=== PATIENT | female | born 1995 | race African-American/Black ===

== ENCOUNTER 2016-05-17 14:27 | Emergency (ER) | payer SELFPAY ==
[~2016-05-17] VITALS: Ht 167.6 cm; Wt 70.3 kg
[~2016-05-17 14:27] MED LIST: HYDR-2666 PO
[2016-05-17 14:32] VITALS: BP 127/94
[2016-05-17] MEDS ORDERED: ONDANSETRON ODT 4 MG TAB.RAPDIS. PO ONE (15:00)
--- NOTE | 2016-05-17 15:48 | PHYS DOC ---
Past Medical History Past Medical History: No Pertinent History Past Surgical History: No Surgical History Smoking: Less than 1pk/day Alcohol Use: Occasionally Drug Use: None Adult General Chief Complaint Chief Complaint: GENERAL COMPLAINT HPI HPI Patient is a 21 year old female who presents with nausea, vomiting, and diffuse abdominal pain starting today. She states that last night she drank 5-6 Strawberrita 8 oz malt liquor beverages. She woke this morning with nausea and vomiting. She has not been able to eat. She denies any diarrhea, fever, or urinary symptoms. She does not have a PCP. Review of Systems Review of Systems Constitutional: Denies fever or chills. [] Eyes: Denies change in visual acuity, redness, or eye pain. [] HENT: Denies ear pain, nasal congestion or sore throat. [] Respiratory: Denies cough or shortness of breath. [] Cardiovascular: Denies chest pain, palpitations or edema. [] GI: Denies bloody stools or diarrhea. Reports nausea, vomiting, and diffuse abdominal pain. : Denies dysuria, hematuria or urinary frequency. [] Musculoskeletal: Denies back pain or joint pain. [] Integument: Denies rash or skin lesions. [] Neurologic: Denies headache, focal weakness or sensory changes. [] Endocrine: Denies polyuria or polydipsia. [] Psych: Denies anxiety or depression. [] All systems reviewed and negative unless otherwise stated in the HPI. Current Medications Current Medications Current Medications Medications (Trade) Dose Ordered Sig/Ash Start Time Stop Time Status Last Admin Dose Admin Ondansetron HCl (Zofran Odt) 4 mg 1X ONCE 05/17/16 15:00 05/17/16 15:01 DC 05/17/16 15:03 4 MG Allergies Allergies Allergies Coded Allergies Type Severity Reaction Last Updated Verified No Known Drug Allergies 07/12/14 No Physical Exam Physical Exam Constitutional: Well developed, well nourished, no acute distress, non-toxic appearance. [] HENT: Normocephalic, atraumatic, oropharynx moist. [] Eyes: PERRLA, EOMI, conjunctiva normal, no discharge. [] Neck: Normal range of motion, no tenderness, supple, no stridor. [] Cardiovascular: Heart rate regular rhythm, no murmur. [] Lungs & Thorax: Bilateral breath sounds clear to auscultation without wheezes, rales, or rhonchi. [] Abdomen: Bowel sounds normal, soft, epigastric tenderness, no masses, no pulsatile masses. [] Skin: Warm, dry, no erythema, no rash. [] Back: No midline tenderness, no CVA tenderness. [] Neurologic: Alert and oriented X 3, normal motor function, normal sensory function, no focal deficits noted. [] Psychologic: Affect normal, judgement normal, mood normal. [] Current Patient Data Vital Signs Vital Signs Date Time Temp Pulse Resp B/P Pulse Ox O2 Delivery O2 Flow Rate FiO2 05/17/16 14:32 98.5 80 20 98 Room Air 98.5 EKG EKG [] Radiology/Procedures Radiology/Procedures [] Course & Med Decision Making Course & Med Decision Making Pertinent Labs and Imaging studies reviewed. (See chart for details) Patient presents with nausea, vomiting, and abdominal pain after excessive alcohol intake last night. Upon arrival to the emergency department, her vital signs are stable. On exam, her abdomen is soft and nonsurgical with epigastric tenderness. She was given ODT Zofran for her nausea and instructed to sip water. She reports feeling much better without any emesis in the emergency department. She is discharged with prescription for Zofran. Return precautions were discussed. She verbalizes understanding and agrees with plan. Dragon Disclaimer Dragon Disclaimer This electronic medical record was generated, in whole or in part, using a voice recognition dictation system. Departure Departure Impression: Primary Impression: Nausea & vomiting Disposition: 01 HOME, SELF-CARE Condition: IMPROVED Referrals: NO PCP (PCP) Patient Instructions: Nausea and Vomiting, [id number] Additional Instructions: Please take the prescribed nausea medication as needed for nausea or vomiting. Please drink alcohol responsibly, not in excess. Return to the emergency department if you have any new or concerning symptoms. Scripts Ondansetron (Zofran Odt)4 Mg Tab.rapdis1 Tab SL Q8HRS #10 TAB Prov:VICKEY ROSARIO 05/17/16 Problem Qualifiers Primary Impression: Nausea & vomiting Vomiting type: unspecified Vomiting Intractability: non-intractable Qualified Code: R11.2 - Nausea with vomiting, unspecified VICKEY ROSARIO May 17, 2016 15:48
[2016-05-17] MEDS ORDERED: ONDA4TAB10 SL (15:51)
== END 2016-05-17 15:56 | disposition home or self-care (01) ==
LOC: ER 14:27
DX: R11.2 Nausea with vomiting, unspecified (principal); R10.84 Generalized abdominal pain; R10.816 Epigastric abdominal tenderness; F17.200 Nicotine dependence, unspecified, uncomplicated
CPT/HCPCS: 99283; Q0162

== ENCOUNTER 2017-08-26 13:21 | Emergency (ER) | payer OTHER | END 2017-08-26 14:10 | disposition left against medical advice (07) | LOC: ER 14:10 | DX: R10.9 Unspecified abdominal pain (principal); R11.2 Nausea with vomiting, unspecified; Z53.21 Procedure and treatment not carried out due to patient leaving prior to being seen by health care provider ==

== ENCOUNTER 2019-04-07 05:51 | Emergency (ER) | payer OTHER ==
[~2019-04-07] VITALS: Ht 167.6 cm; Wt 68.1 kg
[~2019-04-07 05:51] MED LIST changes: -HYDR-2666 PO; +HYDR-2761 PO; +ONDA4TAB10 SL
[2019-04-07 05:52] VITALS: BP 129/83
--- NOTE | 2019-04-07 06:08 | PHYS DOC ---
Past Medical History Past Medical History: No Pertinent History Past Surgical History: No Surgical History Smoking Status: Current Every Day Smoker Alcohol Use: Occasionally Drug Use: None Adult General Chief Complaint Chief Complaint: CHEST PAIN HPI HPI Patient is a 24 year old -[place] female who presents to the ER secondary to complaint of chest pain. Patient states her symptoms started yesterday with epigastric discomfort and she had associated nausea and vomiting. Her pain moved into her chest throughout the night and is currently described as a pressure rated 6/10. Her pain was 8/10 yesterday. Exasperating factors include lying down flat. She has not tried medication for this. There have been sick contacts around her with similar gastrointestinal symptoms as well as pneumonia. Patient denies fever but does admit to a cough. She has a history of smoking Review of Systems Review of Systems All other ROS is negative unless otherwise stated in HPI Current Medications Current Medications Current Medications Medications (Trade) Dose Ordered Sig/Ash Start Time Stop Time Status Last Admin Dose Admin Aspirin (Children'S Aspirin) 324 mg 1X ONCE 04/07/19 06:15 04/07/19 06:16 DC 04/07/19 06:07 324 MG Multi-Ingredient Mouthwash/Gargle (Gi Cocktail) 20 ml 1X ONCE 04/07/19 06:30 04/07/19 06:31 DC 04/07/19 06:14 20 ML Ondansetron HCl (Zofran) 4 mg 1X ONCE 04/07/19 06:30 04/07/19 06:31 DC 04/07/19 06:15 4 MG Allergies Allergies Allergies Coded Allergies Type Severity Reaction Last Updated Verified No Known Drug Allergies 07/12/14 No Physical Exam Physical Exam See above Constitutional: Well developed, well nourished, no acute distress, non-toxic appearance. [] HENT: Normocephalic, atraumatic, bilateral external ears normal, oropharynx moist, no oral exudates, nose normal. [] Eyes: PERRLA, EOMI, conjunctiva normal, no discharge. [] Neck: Normal range of motion, no tenderness, supple, no stridor. [] Cardiovascular:Heart rate regular rhythm, no murmur [] Lungs & Thorax: Bilateral breath sounds clear to auscultation [] Abdomen: Bowel sounds normal, soft, no tenderness, no masses, no pulsatile masses. [] Skin: Warm, dry, no erythema, no rash. [] Back: No tenderness, no CVA tenderness. [] Extremities: No tenderness, no cyanosis, no clubbing, ROM intact, no edema. [] Neurologic: Alert and oriented X 3, normal motor function, normal sensory function, no focal deficits noted. [] Psychologic: Affect normal, judgement normal, mood normal. [] Current Patient Data Vital Signs Vital Signs Date Time Temp Pulse Resp B/P (MAP) Pulse Ox O2 Delivery O2 Flow Rate FiO2 04/07/19 05:52 97.3 81 24 129/83 (98) 98 Room Air 97.3 Lab Values Laboratory Tests Test 04/07/19 06:00 04/07/19 06:05 04/07/19 06:20 White Blood Count 6.4 x10^3/uL (4.0-11.0) Red Blood Count 4.36 x10^6/uL (3.50-5.40) Hemoglobin 12.6 g/dL (12.0-15.5) Hematocrit 37.9 % (36.0-47.0) Mean Corpuscular Volume 87 fL (79-100) Mean Corpuscular Hemoglobin 29 pg (25-35) Mean Corpuscular Hemoglobin Concent 33 g/dL (31-37) Red Cell Distribution Width 14.0 % (11.5-14.5) Platelet Count 181 x10^3/uL (140-400) Neutrophils (%) (Auto) 39 % (31-73) Lymphocytes (%) (Auto) 47 % (24-48) Monocytes (%) (Auto) 7 % (0-9) Eosinophils (%) (Auto) 6 % (0-3) H Basophils (%) (Auto) 1 % (0-3) Neutrophils # (Auto) 2.5 x10^3/uL (1.8-7.7) Lymphocytes # (Auto) 3.0 x10^3/uL (1.0-4.8) Monocytes # (Auto) 0.5 x10^3/uL (0.0-1.1) Eosinophils # (Auto) 0.4 x10^3/uL (0.0-0.7) Basophils # (Auto) 0.0 x10^3/uL (0.0-0.2) Sodium Level 140 mmol/L (136-145) Potassium Level 3.9 mmol/L (3.5-5.1) Chloride Level 105 mmol/L (98-107) Carbon Dioxide Level 27 mmol/L (21-32) Anion Gap 8 (6-14) Blood Urea Nitrogen 13 mg/dL (7-20) Creatinine 0.9 mg/dL (0.6-1.0) Estimated GFR (Cockcroft-Gault) 92.3 BUN/Creatinine Ratio 14 (6-20) Glucose Level 90 mg/dL (70-99) Calcium Level 9.0 mg/dL (8.5-10.1) Total Bilirubin 0.7 mg/dL (0.2-1.0) Aspartate Amino Transferase (AST) 15 U/L (15-37) Alanine Aminotransferase (ALT) 17 U/L (14-59) Alkaline Phosphatase 61 U/L (46-116) Troponin I Quantitative < 0.017 ng/mL (0.000-0.055) Total Protein 7.3 g/dL (6.4-8.2) Albumin 3.6 g/dL (3.4-5.0) Albumin/Globulin Ratio 1.0 (1.0-1.7) Influenza Type A Antigen Negative (NEGATIVE) Influenza Type B Antigen Negative (NEGATIVE) POC Urine HCG, Qualitative Hcg negative (Negative) Laboratory Tests 04/07/19 06:00 Laboratory Tests 04/07/19 06:00 EKG EKG EKG shows a sinus rhythm with a ventricular rate of [address] changes. Intervals are normal. Radiology/Procedures Radiology/Procedures Single view chest dated 04/07/2019: No comparison available. Clinical Indication: Chest pain. Findings: Single upright portable exam of the chest was performed. Heart size and mediastinal contours are within normal limits given technique. The lungs are clear without evidence of focal consolidation. Vascular interstitium is within normal limits. Impression:: Negative portable chest.[] Course & Med Decision Making Course & Med Decision Making Pertinent Labs and Imaging studies reviewed. (See chart for details) 0607: 24-year-old female seen for chest pain. Her EKG is unremarkable. Differential diagnosis includes cardiac etiology, gastroenteritis, influenza, pneumonia. We will give aspirin and will also give Zofran and GI cocktail as this may be related to esophageal irritation from recent vomiting. 0657: Patient is feeling better after GI cocktail. Her labs and x-ray are unremarkable. Patient will be given a prescription for Zofran as well as Pepcid and she is to follow-up for ongoing symptoms. Manishaon Disclaimer Yonny Disclaimer This electronic medical record was generated, in whole or in part, using a voice recognition dictation system. Departure Departure Impression: Primary Impression: Atypical chest pain Additional Impressions: Irritable esophagus Vomiting Disposition: HOME, SELF-CARE Condition: IMPROVED Referrals: NO PCP (PCP) Patient Instructions: Chest Pain (Nonspecific) Scripts Famotidine (PEPCID) 20 Mg Tablet 20 MG PO BID for 7 Days, #14 TAB Prov: JOLEEN JACKSON DO 04/07/19 Ondansetron Hcl (ZOFRAN) 4 Mg Tablet 1 TAB PO PRN Q6-8HRS for nausea, #12 TAB Prov: JOLEEN JACKSON DO 04/07/19 The HEART Score for CP Pts HEART Score for Chest Pain: HEART Score for Chest Pain Response (Comments) Value History Slighlty/Non-Suspicious 0 ECG Normal 0 Age < 45 0 Risk Factors No Risk Factors 0 Troponin < Normal Limit 0 Total 0 Risk Factors: Risk Factors: None Risk Scores: Score 0 - 3: 2.5% MACE over next 6 weeks - Discharge Home Score 4 - 6: 20.3% MACE over next 6 weeks - Admit for Clinical Observation Score 7 - 10: 72.7% MACE over next 6 weeks - Early Invasive Strategies Problem Qualifiers JOLEEN JACKSON DO Apr 07, 2019 06:08
--- NOTE | 2019-04-07 06:12 | EKG ---
[facility] [address] [place] [address] Test Date: 2019-04-07 Test Time: 05:55:25 Pat Name: LISSETT WHITMORE Department: Room: Gender: F [employer] Operator: : [id number] Requested By: JESSICA SANDHU Order Number: [id number] Reading MD: Measurements Intervals [place] Rate: 90 P: 50 SC: 144 QRS: 59 QRSD: 80 T: 36 QT: 348 QTc: 429 Interpretive Statements SINUS RHYTHM LEFT ATRIAL ABNORMALITY ABNORMAL ECG No previous ECG available for comparison
[2019-04-07] MEDS ORDERED: ASPIRIN CHEWABLE 81 MG TABLET. PO ONE (06:15)
[2019-04-07 06:18] LABS: CREATININE 0.9 mg/dL (0.6-1.0); GFR 92.3; POTASSIUM 3.9 mmol/L (3.5-5.1)
[2019-04-07 06:24] LABS: ALBUMIN 3.6 g/dL (3.4-5.0); TOTAL BILIRUBIN 0.7 mg/dL (0.2-1.0); TOTAL PROTEIN 7.3 g/dL (6.4-8.2)
[2019-04-07 06:28] LABS: BASO % 1 % (0-3); EOS # 0.4 x10^3/uL (0.0-0.7); EOS % 6 % (0-3); HEMATOCRIT 37.9 % (36.0-47.0); HEMOGLOBIN 12.6 g/dL (12.0-15.5); LYMPH % 47 % (24-48); MEAN CORPUSCULAR HEMOGLOBIN 29 pg (25-35); MEAN CORPUSCULAR HGB CONC 33 g/dL (31-37); MEAN CORPUSCULAR VOLUME 87 fL (79-100); MONO # 0.5 x10^3/uL (0.0-1.1); MONO % 7 % (0-9); NEUT # 2.5 x10^3/uL (1.8-7.7); NEUT % 39 % (31-73); PLATELET COUNT 181 x10^3/uL (140-400); RED BLOOD COUNT 4.36 x10^6/uL (3.50-5.40); WHITE BLOOD COUNT 6.4 x10^3/uL (4.0-11.0)
[2019-04-07 06:28] LABS: INFLUENZA A PATIENT NEGATIVE (NEGATIVE); INFLUENZA B PATIENT NEGATIVE (NEGATIVE)
[2019-04-07] MEDS ORDERED: LIDO:MAALOX 1:1 20 ML SINGLE DOSE. SWSW ONE (06:30)
[2019-04-07] MEDS ORDERED: ONDANSETRON PF 4 MG/2 ML VIAL. IVP ONE (06:30)
--- NOTE | 2019-04-07 06:39 | RAD ---
Single view chest dated 04/07/2019: No comparison available. Clinical Indication: Chest pain. Findings: Single upright portable exam of the chest was performed. Heart size and mediastinal contours are within normal limits given technique. The lungs are clear without evidence of focal consolidation. Vascular interstitium is within normal limits. Impression:: Negative portable chest. Electronically signed by: Jose Andrade MD (04/07/2019 6:36 AM) [id number]
[2019-04-07] MEDS ORDERED: FAMO-63 PO (07:00)
[2019-04-07] MEDS ORDERED: ONDA4TAB7 PO (07:00)
== END 2019-04-07 07:15 | disposition home or self-care (01) ==
LOC: ER 05:51
DX: R07.89 Other chest pain (principal); R45.4 Irritability and anger; R11.2 Nausea with vomiting, unspecified; F17.200 Nicotine dependence, unspecified, uncomplicated; Z79.82 Long term (current) use of aspirin
CPT/HCPCS: 36415; 71045; 80053; 81025; 84484; 85025; 87804; 93005; 96374; 99285; J2405

== ENCOUNTER 2019-08-30 13:22 | Emergency (ER) | payer OTHER ==
[~2019-08-30] VITALS: Ht 167.6 cm; Wt 70.0 kg
[~2019-08-30 13:22] MED LIST changes: +FAMO-63 PO; +ONDA4TAB7 PO
[2019-08-30 13:44] VITALS: BP 123/72
[2019-08-30 14:14] LABS: BASO # 0.1 x10^3/uL (0.0-0.2); BASO % 1 % (0-3); EOS # 0.3 x10^3/uL (0.0-0.7); EOS % 5 % (0-3); HEMATOCRIT 36.1 % (36.0-47.0); HEMOGLOBIN 12.5 g/dL (12.0-15.5); LYMPH % 29 % (24-48); MEAN CORPUSCULAR HEMOGLOBIN 30 pg (25-35); MEAN CORPUSCULAR HGB CONC 35 g/dL (31-37); MEAN CORPUSCULAR VOLUME 87 fL (79-100); MONO # 0.5 x10^3/uL (0.0-1.1); MONO % 8 % (0-9); NEUT # 3.9 x10^3/uL (1.8-7.7); NEUT % 57 % (31-73); PLATELET COUNT 200 x10^3/uL (140-400); RED BLOOD COUNT 4.13 x10^6/uL (3.50-5.40); RED CELL DISTRIBUTION WIDTH 12.9 % (11.5-14.5); WHITE BLOOD COUNT 6.9 x10^3/uL (4.0-11.0)
[2019-08-30] MEDS ORDERED: IV NORMAL SALINE 1000ML BAG 1,000 ML IV ONE (14:15)
[2019-08-30] MEDS ORDERED: ONDANSETRON PF 4 MG/2 ML VIAL. IV ONE ×2 (14:15→16:15)
[2019-08-30] MEDS ORDERED: MAG HYDROX/ALUMINUM HYD/SIMETH 30 ML ORAL.SUSP PO ONE (14:15)
[2019-08-30] MEDS ORDERED: AZITHROMYCIN 250 MG TABLET. PO ONE (14:15)
[2019-08-30] MEDS ORDERED: cefTRIAXone IM 250 MG VIAL IM ONE (14:15)
[2019-08-30 14:20] LABS: CREATININE 0.8 mg/dL (0.6-1.0); GFR 105.8; POTASSIUM 3.8 mmol/L (3.5-5.1)
[2019-08-30 14:26] LABS: ALBUMIN 3.6 g/dL (3.4-5.0); ALBUMIN/GLOBULIN RATIO 0.9 (1.0-1.7); MAGNESIUM 1.7 mg/dL (1.8-2.4); TOTAL PROTEIN 7.5 g/dL (6.4-8.2)
[2019-08-30 14:35] LABS: BILIRUBIN,URINE NEGATIVE (NEG); CLARITY,URINE CLEAR; COLOR,URINE YELLOW; NITRITE,URINE NEGATIVE (NEG); PH,URINE 7.5 (<5.0-8.0); PROTEIN,URINE NEGATIVE (NEG-TRACE); UROBILINOGEN,URINE 0.2 mg/dL (0.2 mg/dL)
[2019-08-30 14:45] LABS: BACTERIA,URINE FEW /HPF (0-FEW); RBC,URINE 0 /HPF (0-2); SQUAMOUS EPITHELIAL CELL,UR MANY /LPF; WBC,URINE OCC /HPF (0-4)
--- NOTE | 2019-08-30 15:38 | RAD ---
INDICATION: Reason: pelvic pain, lower abd pain, / Spl. Instructions: / History: COMPARISON: None. TECHNIQUE: Grayscale and color ultrasound images uterus and adnexa. Transabdominal and transvaginal images obtained. Transvaginal images were needed to better visualize structures that were limited on transabdominal imaging. FINDINGS: Uterus: 94 x 77 x 61 mm. Intrauterine gestational sac is identified. Adjacent to the gestational sac there is an 8 x 7 mm complex cystic structure identified with some internal echoes within. pole has a heart beat of 117. Duenweg-rump length is 3 mm. There is some free fluid seen within the cul-de-sac. Too early in to assess the placenta. Amniotic fluid is seen. Right Ovary: 26 x 12 x 15 mm. Left Ovary: 40 x 36 x 31 mm. Vascular flow identified to bilateral ovaries. Left ovarian cyst measuring 24 x 28 mm. IMPRESSION: * Intrauterine gestational sac is identified with a pole with estimated gestational age of 5 weeks and 6 days. Recommend routine anomaly screening at 18-22 weeks. * Complex cystic structure is seen adjacent to the gestational sac within the uterus. Could be from causes such as a subchorionic hematoma and attention on follow-up. * Left ovarian cystic lesion. Electronically signed by: Sameer Yeboah MD (08/30/2019 3:35 PM) [id number]
--- NOTE | 2019-08-30 16:01 | PHYS DOC ---
Past Medical History Past Medical History: No Pertinent History Additional Past Medical Histor: Herpes type 1 and type 2. misc. STD's. Past Surgical History: Other Additional Past Surgical Histo: D&C Smoking Status: Former Smoker Alcohol Use: Occasionally Additional Information: "I stopped once I found out I was ." Drug Use: None General Adult EDM: Chief Complaint: ABDOMINAL PAIN IN HPI: HPI: Patient is a 24 year old AA female, who presents to the emergency department with complaints of lower abdominal/suprapubic abdominal pain for 2 weeks, and nausea, vomiting, and upper abdominal pain since yesterday. Patient states she is currently , 3, para 1, AB 1 with a previous D&C. She denies any irregular vaginal discharge, vaginal odor, vaginal itching, or vaginal bleeding. She denies any dysuria, hematuria, increased urinary frequency, or low back pain. The patient states her last menstrual cycle was on July 24, 2019 and she is not sure of her due date. She reports that she was informed by her DIRECTOR CUSTOM that she tested positive for gonorrhea recently and that she needs to be treated. She denies any fever, cough, shortness of breath, palpitations, dizziness, or swelling. She states that she does have some intermittent sharp burning pain in her left chest, but currently denies any chest pain. She currently rates her pain a 8 out of 10 on the pain scale, she denies any alleviating factors. She states that her abdominal pain does not radiate anywhere. Review of Systems: Review of Systems: Constitutional: Denies fever or chills. [] Eyes: Denies change in visual acuity. [] HENT: Denies nasal congestion or sore throat. [] Respiratory: Denies cough or shortness of breath. [] Cardiovascular: See HPI GI: See HPI : Denies dysuria. [] Musculoskeletal: Denies back pain or joint pain. [] Integument: Denies rash. [] Neurologic: Denies headache Psychiatric: Denies depression or anxiety. [] Heart Score: Risk Factors: Risk Factors: DM, Current or recent (<one month) smoker, HTN, HLP, family history of CAD, obesity. Risk Scores: Score 0 - 3: 2.5% MACE over next 6 weeks - Discharge Home Score 4 - 6: 20.3% MACE over next 6 weeks - Admit for Clinical Observation Score 7 - 10: 72.7% MACE over next 6 weeks - Early Invasive Strategies Current Medications: Current Medications Medications (Trade) Dose Ordered Sig/Ash Start Time Stop Time Status Last Admin Dose Admin Al Hydroxide/Mg Hydroxide (Mylanta Plus Xs) 30 ml 1X ONCE 08/30/19 14:15 08/30/19 14:16 DC 08/30/19 14:14 30 ML Azithromycin (Zithromax) 2,000 mg 1X ONCE 08/30/19 14:15 08/30/19 14:16 DC 08/30/19 15:10 2,000 MG Ceftriaxone Sodium (Rocephin Im) 250 mg 1X ONCE 08/30/19 14:15 08/30/19 14:16 DC 08/30/19 15:10 250 MG Ondansetron HCl (Zofran) 4 mg 1X ONCE 08/30/19 14:15 08/30/19 14:16 DC 08/30/19 14:14 4 MG Sodium Chloride 1,000 ml @ 1,000 mls/hr 1X ONCE 08/30/19 14:15 08/30/19 15:14 DC 08/30/19 14:15 1,000 MLS/HR Allergies: Allergies: Allergies Coded Allergies Type Severity Reaction Last Updated Verified No Known Drug Allergies 07/12/14 No Physical Exam: PE: Constitutional: Well developed, well nourished, no acute distress, non-toxic appearance. [] HENT: Normocephalic, atraumatic, bilateral external ears normal, oropharynx moist, no oral exudates, nose normal. [] Eyes: PERRLA, EOMI, conjunctiva normal, no discharge. [] Neck: Normal range of motion, no tenderness, supple, no stridor. [] Cardiovascular:Heart rate regular rhythm, no murmur [] Lungs & Thorax: Bilateral breath sounds clear to auscultation [] Abdomen: Bowel sounds normal, soft, no tenderness, no masses, no pulsatile masses. [] Skin: Warm, dry, no erythema, no rash. [] Back: No tenderness, no CVA tenderness. [] Extremities: No tenderness, no cyanosis, no clubbing, ROM intact, no edema. [] Neurologic: Alert and oriented X 3, normal motor function, normal sensory f unction, no focal deficits noted. [] Psychologic: Affect normal, judgement normal, mood normal. [] Current Patient Data: Labs: Laboratory Tests Test 08/30/19 13:50 08/30/19 13:58 08/30/19 14:04 Urine Collection Type Void Urine Color Yellow Urine Clarity Clear Urine pH 7.5 (<5.0-8.0) Urine Specific [place] 1.025 (1.000-1.030) Urine Protein Negative mg/dL (NEG-TRACE) Urine Glucose (UA) Negative mg/dL (NEG) Urine Ketones (Stick) 15 mg/dL (NEG) Urine Blood Negative (NEG) Urine Nitrite Negative (NEG) Urine Bilirubin Negative (NEG) Urine Urobilinogen Dipstick 0.2 mg/dL (0.2 mg/dL) Urine Leukocyte Esterase Negative (NEG) Urine RBC 0 /HPF (0-2) Urine WBC Occ /HPF (0-4) Urine Squamous Epithelial Cells Many /LPF Urine Bacteria Few /HPF (0-FEW) Urine Mucus Mod /LPF POC Urine HCG, Qualitative Hcg positive (Negative) White Blood Count 6.9 x10^3/uL (4.0-11.0) Red Blood Count 4.13 x10^6/uL (3.50-5.40) Hemoglobin 12.5 g/dL (12.0-15.5) Hematocrit 36.1 % (36.0-47.0) Mean Corpuscular Volume 87 fL (79-100) Mean Corpuscular Hemoglobin 30 pg (25-35) Mean Corpuscular Hemoglobin Concent 35 g/dL (31-37) Red Cell Distribution Width 12.9 % (11.5-14.5) Platelet Count 200 x10^3/uL (140-400) Neutrophils (%) (Auto) 57 % (31-73) Lymphocytes (%) (Auto) 29 % (24-48) Monocytes (%) (Auto) 8 % (0-9) Eosinophils (%) (Auto) 5 % (0-3) H Basophils (%) (Auto) 1 % (0-3) Neutrophils # (Auto) 3.9 x10^3/uL (1.8-7.7) Lymphocytes # (Auto) 2.0 x10^3/uL (1.0-4.8) Monocytes # (Auto) 0.5 x10^3/uL (0.0-1.1) Eosinophils # (Auto) 0.3 x10^3/uL (0.0-0.7) Basophils # (Auto) 0.1 x10^3/uL (0.0-0.2) Sodium Level 134 mmol/L (136-145) L Potassium Level 3.8 mmol/L (3.5-5.1) Chloride Level 101 mmol/L (98-107) Carbon Dioxide Level 25 mmol/L (21-32) Anion Gap 8 (6-14) Blood Urea Nitrogen 8 mg/dL (7-20) Creatinine 0.8 mg/dL (0.6-1.0) Estimated GFR (Cockcroft-Gault) 105.8 BUN/Creatinine Ratio 10 (6-20) Glucose Level 84 mg/dL (70-99) Calcium Level 9.0 mg/dL (8.5-10.1) Magnesium Level 1.7 mg/dL (1.8-2.4) L Total Bilirubin 1.0 mg/dL (0.2-1.0) Aspartate Amino Transferase (AST) 16 U/L (15-37) Alanine Aminotransferase (ALT) 14 U/L (14-59) Alkaline Phosphatase 53 U/L (46-116) Total Protein 7.5 g/dL (6.4-8.2) Albumin 3.6 g/dL (3.4-5.0) Albumin/Globulin Ratio 0.9 (1.0-1.7) L Lipase 112 U/L (73-393) Laboratory Tests 08/30/19 14:04 Laboratory Tests 08/30/19 14:04 Vital Signs: Vital Signs Date Time Temp Pulse Resp B/P (MAP) Pulse Ox O2 Delivery O2 Flow Rate FiO2 08/30/19 13:44 98.2 76 12 123/72 (89) 98 Room Air 98.2 EKG: EK- SR rate62,no STEMI read by Dr. Chen[] Radiology/Procedures: Radiology/Procedures: PROCEDURE: OB <14 WKS W/TV INDICATION: Reason: pelvic pain, lower abd pain, / Spl. Instructions: / History: COMPARISON: None. TECHNIQUE: Grayscale and color ultrasound images uterus and adnexa. Transabdominal and transvaginal images obtained. Transvaginal images were needed to better visualize structures that were limited on transabdominal imaging. FINDINGS: Uterus: 94 x 77 x 61 mm. Intrauterine gestational sac is identified. Adjacent to the gestational sac there is an 8 x 7 mm complex cystic structure identified with some internal echoes within. pole has a heart beat of 117. [place]-rump length is 3 mm. There is some free fluid seen within the cul-de-sac. Too early in to assess the placenta. Amniotic fluid is seen. Right Ovary: 26 x 12 x 15 mm. Left Ovary: 40 x 36 x 31 mm. Vascular flow identified to bilateral ovaries. Left ovarian cyst measuring 24 x 28 mm. IMPRESSION: * Intrauterine gestational sac is identified with a pole with estimated gestational age of 5 weeks and 6 days. Recommend routine anomaly screening at 18-22 weeks. * Complex cystic structure is seen adjacent to the gestational sac within the uterus. Could be from causes such as a subchorionic hematoma and attention on follow-up. * Left ovarian cystic lesion. [] Course & Med Decision Making: Course & Med Decision Making Pertinent Labs and Imaging studies reviewed. (See chart for details) [id number]- Spoke with Dr. Dr. Truong about ultrasound report, will instruct patient to follow pelvic rest until seen by her OBGYN for repeat exam and ultrasound. 24-year-old female presents to the emergency department with multiple complaints. CBC and CMP are unremarkable, UA is also unremarkable. EKG- SR rate 62 Pelvic ultrasound reveals a intrauterine gestation measuring 5 weeks, 6 days, there is a left ovarian cystic lesion and a complex cystic structure is seen adjacent to the gestational sac Patient reported that her epigastric pain was relieved by the Maalox that was given. She reported feeling better after the liter of normal saline and 4 mg of Zofran. However patient vomited clear fluid at approximately 07/24/2004, she expressed feeling nauseated after the medications that were taken. For more milligrams of Zofran was given to the patient. Will prescribe Zofran to take at home as needed for nausea. Recommend clear fluids followed by the brat diet and then advance as tolerated. Advised the patient to practice pelvic rest until evaluated by her DIRECTOR CUSTOM at [facility]. Instructed patient to call her DIRECTOR CUSTOM office as soon as possible to schedule follow-up. Return to the ER if symptoms worsen or fever develops. Patient verbalized an understanding of home care, medications, follow-up, and return to ED instructions and was in agreement with the plan of care. Yonny Disclaimer: Yonny Disclaimer: This electronic medical record was generated, in whole or in part, using a voice recognition dictation system. Departure Departure Impression: Primary Impression: Abdominal pain during in first trimester Additional Impressions: Nausea & vomiting Qualified Codes: R11.2 - Nausea with vomiting, unspecified Epigastric abdominal pain affecting in first trimester Gonorrhea affecting in first trimester Disposition: HOME, SELF-CARE Condition: STABLE Referrals: NO PCP (PCP) Patient Instructions: Abdominal Pain During , [id number], Gonorrhea, Females and Males, Heartburn During , [id number], Nausea and Vomiting, [id number] Additional Instructions: Fill the prescription and use as directed. Recommend clear liquid diet for the next 24 hours then advance her diet as tolerated starting with bland foods such as bananas, rice, applesauce, and dry toast. You have been treated for a reported gonorrhea infection. You were given 2000 mg of Zithromax and 250 mg of Rocephin. Follow-up with your DIRECTOR CUSTOM at [facility] for repeat evaluation, call to schedule an appointment today. Pelvic rest until you follow-up with your collections clerk. Return to the ER if symptoms worsen or fever develops. Scripts Ondansetron Hcl (ONDANSETRON HCL) 4 Mg Tablet 1 TAB PO PRN Q6HRS PRN for NAUSEA/VOMITING for 3 Days, #10 TAB 0 Refills Prov: MARIA E EMERSON APRN 08/30/19 Justicifation of Admission Dx: Justifications for Admission: Justification of Admission Dx: MARIA E Coto APRN Aug 30, 2019 16:01
[2019-08-30] MEDS ORDERED: ONDA-84 PO (16:31)
--- NOTE | 2019-08-31 04:49 | EKG ---
[facility] [address] [place] [address] Test Date: 2019-08-30 Test Time: 13:46:38 Pat Name: LISSETT WHITMORE Department: Room: Gender: F [employer]: : [id number] Requested By: MARIA E EMERSON Order Number: [id number] Reading MD: Measurements Intervals [place] Rate: 62 P: 60 W[place]: 142 QRS: 68 QRSD: 80 T: 41 QT: 388 QTc: 396 Interpretive Statements SINUS RHYTHM ATRIAL PREMATURE COMPLEX(ES) NO SPECIFIC ECG ABNORMALITIES RI6.01 No previous ECG available for comparison
== END 2019-08-30 16:48 | disposition home or self-care (01) ==
LOC: ER 13:22
DX: O98.211 Gonorrhea complicating pregnancy, first trimester (principal); O21.9 Vomiting of pregnancy, unspecified; R10.13 Epigastric pain; Z98.890 Other specified postprocedural states; Z87.891 Personal history of nicotine dependence; Z79.899 Other long term (current) drug therapy; Z3A.01 Less than 8 weeks gestation of pregnancy
CPT/HCPCS: 36415; 76801; 76817; 80053; 81001; 81025; 83690; 83735; 85025; 93005; 96361; 96372; 96374; 96376; 99285; J0696; J2405; J7030